=== PATIENT | female | born 1945 | race Caucasian/White ===

== ENCOUNTER 2019-11-16 13:15 | Outpatient (CLI) | payer MEDICARE, SELFPAY ==
[2019-11-16 13:52] LABS: Basophils % 0.9 %; Eosinophils # 0.1 10^3/uL (0.0-0.8); Eosinophils % 1.3 %; Hematocrit 38.3 % (37.0-47.0); Hemoglobin 12.8 g/dL (11.5-15.3); Lymphocytes # 1.3 10^3/uL (0.8-4.8); Lymphocytes % 29.1 %; Mean Corpuscular HGB Conc 33.4 g/dL (30.0-36.0); Mean Corpuscular Hemoglobin 32.1 pg (28.0-34.0); Monocytes # 0.4 10^3/uL (0.2-0.9); Monocytes % 8.4 %; Neutrophils # 2.7 10^3/uL (1.8-7.7); Neutrophils % 60.1 %; Nucleated Red Blood Cells % 0 %; Platelet Count 284 10^3/cmm (130-400); Red Blood Count 3.99 10^6/uL (4.1-5.3); Red Cell Distribution Width 13.1 % (12.1-15.1); White Blood Count 4.5 10^3/uL (4.0-10.0)
[2019-11-16 14:04] LABS: Alanine Aminotransferase 14 U/L (0-33); Albumin Level 4.1 g/dL (3.5-5.2); Alkaline Phosphatase 92 IU/L (35-105); Anion Gap 13.4 (5-19); Aspartate Amino Transferase 22 U/L (0-32); Blood Urea Nitrogen 10 mg/dL (8-23); Calcium 9.6 mg/dL (8.5-10.5); Carbon Dioxide 26 mmol/L (22-29); Chloride 103 mmol/L (98-107); Globulin 2.4 g/dL (1.3-4.6); Glucose 113 mg/dL (65-115); Lactate Dehydrogenase 176 U/L (135-214); Osmolality Calculated 285 mOsm/kg (285-295); Potassium 3.4 mmol/L (3.5-5.1); Sodium 139 mmol/L (136-145); Total Bilirubin 0.5 mg/dL (0.15-1.2); Total Protein 6.5 g/dL (6.6-8.7)
--- NOTE | 2019-11-17 07:00 | ONC FU_ITS ---
Dr. Araujo Patient Follow-Up Note Patient: Omayra Pena Unit #: [id number]: 1945 Dicatated By: Dez Araujo M.D.Date of Visit:Nov 16, 2019 Onc Med Follow-up/Prog Note Chief Complaint: Grade 3A follicular lymphoma. History of Present Illness: This is a 74 year-old woman with grade 3A follicular lymphoma, stage IIIA at initial diagnosis in June 2014. She has been in very good general health. She had an unremarkable yearly exam in March 2014. However, by May 2014 she had become aware of enlarged lymph nodes in the neck and axillary area. She was seen by Dr. Rios and she underwent preliminary evaluation with CT scans of the chest/abdomen/pelvis. Those studies did confirm the presence of extensive bilateral axillary, retropectoral, supraclavicular, and mediastinal adenopathy. There was even more prominent intra-abdominal and retroperitoneal adenopathy, bulky iliac adenopathy bilaterally, and inguinal adenopathy bilaterally. The appearance was felt to be most consistent with lymphoma. She underwent left axillary lymph node biopsy on 07/16/14. Pathology was consistent with malignant B-cell lymphoma, specifically a follicular lymphoma, grade 3A. Flow cytometry showed a monoclonal B-cell population which was predominantly negative for light chains and positive for CD19 and CD20, with partial expression of CD10. The results were felt to be suspicious for B cell neoplasm with a germinal center phenotype. There was no obvious involvement in the bone marrow by routine histology or by flow cytometry. A FISH study, though, did show a t(14:18) (q32:q21) fusion. The BCL-6 rearrangement was not detected, and the MYC rearrangement was not detected. She underwent treatment with R-CHOP chemotherapy. A restaging PET/CT prior to cycle 3 did show at least a significant partial response to the chemotherapy. There were residual calcified left-sided posterior mediastinal lymph nodes which were felt to be reactive in nature or indicative of partial response to therapy. There was no other adenopathy appreciated on that study. As of 11/18/14 she completed her 6th cycle of treatment. She had myelosuppression with each cycle and she also had significant fatigue, but overall she tolerated treatment well. Repeat PET/CT on 12/11/14 was consistent with complete response to chemotherapy. In May 2015 she started maintenance Rituxan with standard courses of 4 weekly treatments every 6 months for 2 years. She began her third 4-week cycle of maintenance Rituxan on 05/14/2016. She had no acute toxicities during the course of treatment. However, she had subsequently developed significant sun sensitivity, and that problem has persisted. I had seen her for follow-up visit on 11/13/2016, and at that point I opted to stop her treatment. Her other medical illnesses have been limited to hypertension and hyperlipidemia. She has additional history of having previously undergone radioactive iodine ablation for hyperthyroidism. During the followup of her lymphoma she had developed a skin eruption in the malar area. She subsequently was seen by a supervisor type photography, and she was diagnosed with systemic lupus. It was adequately managed with topical therapy. She has history of smoking 1 pack of cigarettes daily for 30 years. She is seen for a scheduled visit. She has been feeling good generally. She has good energy and activity tolerance. Appetite also has been good. Her weight is down about 5 pounds. She does not have fever or night sweats. She has sun sensitivity, and she recently had an outbreak of her skin eruption on her face. She has no shortness of breath, cough, or chest pain. She has no GI complaints other than some constipation, which she manages adequately with milk of magnesia. She reports having occasional bladder spasms. She has no other complaints. She has no significant joint or bone pain. She still has a little numbness on the bottoms of her feet from the chemotherapy. Medications: ALPRAZolam 1 Tablet (of 0.5 mg) Oral b.i.d. PRN, AmLODIPine Besylate 1 (5 mg) Tablet Oral daily, Aspirin 1 Tablet (of 81 mg) Tablet, enteric coated Oral daily, Benadryl Allergy Capsule Oral at bedtime PRN, Calcium 1 Tablet (of 600 mg) Oral daily, [facility] Fish Oil 1 Capsule (of 360 mg) Oral daily, Levothroid 1 Tablet (of 75 mcg) Oral daily, Lisinopril 1 (40 mg) Tablet Oral daily, Lovastatin 1 (10 mg) Tablet Oral daily, Multivitamin Adults 50+ Tablet Oral daily Allergies: asparagus, Bactrim DS, codeine, and levaquin. Review of Systems: Constitutional - She generally feels good. Her energy is good. She has normal activity. Her appetite is good. Her weight is down five pounds from last visit. No fever, chills, night sweats, or hot flashes. ECOG score is 0, ENMT - No sinus congestion/drainage. No mouth sores. No sore throat or difficulty swallowing, Hematologic/Lymphatic - No abnormal bruising or bleeding, Respiratory - No shortness of breath. No cough. No pleuritic pain or hemoptysis, Cardiovascular - No angina pain. No palpitations, Gastrointestinal - No nausea or vomiting. No heartburn or acid reflux. No diarrhea. She has occasional constipation, that is adequately managed with Milk of Magnesium. No blood in the stool or black stools, Genitourinary (F) - No dysuria or hematuria. No urinary frequency. No urgency or incontinence, Musculoskeletal - No joint or bone pain, Integumentary - No skin complications, Neurologic - No headache. She gets occasional dizziness with positional changes. No numbness or tingling. No other focal neurologic symptoms, Psychiatric - Her anxiety is adequately managed with alprazolam. No depression. She also sleeps well with the alprazolam. Vital Signs: Performed on Nov 16, 2019 14:58 Height - 65.00 in Weight - 135.0 lbs (LOW) BSA - 1.67 sq.m BMI - 22.47 Temperature - 97.5 F (LOW) Pulse - 64 /min Respiration - 20 /min BP - 137/66 mm(hg) O2 Sat - 98 % Pain - 0 Physical Examination: Constitutional - She looks good generally, Eyes - Sclerae nonicteric. Conjunctivae clear, ENMT - No lesions noted in the oral cavity, Hematologic/Lymphatic - No cervical, clavicular, or axillary adenopathy, Respiratory - Lungs are clear with good air movement bilaterally, Cardiovascular - Heart rhythm is regular. There is no gallop or rub noted, Abdomen - Soft. Liver and spleen are not enlarged. There is no abdominal mass or ascites noted and there is no inguinal adenopathy, Extremities - No edema. Pedal pulses are palpable bilaterally, Integumentary - There is a mild erythematous skin eruption in the facial area, Neurologic - No focal neurologic deficits noted. Lab/Imaging: Test performed on Nov 16, 2019 13:33 LDH (Total) 176 U/L Sodium 139 mmol/L Potassium 3.4 mmol/L Chloride 103 mmol/L CO2 26 mmol/L Anion Gap 13.4 BUN 10 mg/dL Creatinine 0.5 mg/dL Cr Clearance (Est) 97.4700 mL/min Glucose 113 mg/dL Calcium 9.6 mg/dL Protein, Total 6.5 g/dL Albumin 4.1 g/dL Globulin 2.4 g/dL Bilirubin, Total 0.5 mg/dL ALT (SGPT) 14 U/L AST (SGOT) 22 U/L Alkaline Phosphatase 92 IU/L WBC 4.5 10 3/uL RBC 3.99 10 6/uL HGB 12.8 g/dL HCT 38.3 % MCV 96.0 fL MCH 32.1 pg MCHC 33.4 g/dL RDW 13.1 % Platelet Count 284 10 3/cmm MPV 10.0 fL Neutrophils 2.7 10 3/uL Lymphocytes 1.3 10 3/uL Monocytes 0.4 10 3/uL Eosinophils 0.1 10 3/uL Basophils 0.0 10 3/uL Neutrophil % 60.1 % Lymphocyte % 29.1 % Monocyte % 8.4 % Eosinophil % 1.3 % Basophils % 0.9 % Impression: 1. Patient with grade 3A follicular lymphoma, initially diagnosed in June 2014. She had stage IIIA disease with extensive generalized lymphadenopathy. 2. She underwent treatment with R-CHOP chemotherapy. As of 11/18/14 she completed her sixth cycle of treatment. She appeared to have a complete response by followup PET/CT. She had gradual improvement in her performance status following the chemotherapy. 3. In May 2015 she began maintenance Rituxan at 6-month intervals. She began her 3rd maintenance cycle on 05/04/2016. She tolerated that 4 week course of treatment without acute toxicity. She subsequently developed a significant skin eruption, and I opted to stop her treatment. She has since then followed on observation/expectant management. Her other medical illnesses include: 4. Hypertension. 5. Hyperlipidemia. 6. She has a history of radioactive iodine ablation for hyperthyroidism. 7. During follow-up of the lymphoma she had developed sun sensitivity, and she was diagnosed with systemic lupus. She has had no other lupus manifestations. She has remained on observation/expectant management following completion of the chemotherapy and the maintenance rituximab. 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 Overall, though, she has been doing well clinically with no evidence of recurrence of the lymphoma. Plan: She remainss on observation/expectant management or the lymphoma. I will just plan to see her again in one year. Signed By: Dez Araujo M.D. <<Signature on File>>
== END 2019-11-16 13:16 | disposition home or self-care (01) ==
LOC: ONCMED 13:16
PROVIDERS: Family Provider Family Medicine; PCP Family Medicine; Visit Provider Internal Medicine Medical Oncology
DX: Z08 Encounter for follow-up examination after completed treatment for malignant neoplasm (principal); Z85.72 Personal history of non-Hodgkin lymphomas; I10 Essential (primary) hypertension; E78.5 Hyperlipidemia, unspecified; M32.9 Systemic lupus erythematosus, unspecified; G62.0 Drug-induced polyneuropathy; T45.1X5S Adverse effect of antineoplastic and immunosuppressive drugs, sequela; Z92.21 Personal history of antineoplastic chemotherapy; Z79.899 Other long term (current) drug therapy
CPT/HCPCS: 36415; 80053; 83615; 85025; G0463

== ENCOUNTER 2020-10-31 08:10 | Outpatient (CLI) | payer MEDICARE, SELFPAY ==
[2020-10-31 09:24] LABS: Basophils # 0.1 10^3/uL (0.0-0.1); Basophils % 1.6 %; Eosinophils # 0.2 10^3/uL (0.0-0.8); Eosinophils % 3.4 %; Hematocrit 41.2 % (37.0-47.0); Hemoglobin 13.3 g/dL (11.5-15.3); Lymphocytes % 19.5 %; Mean Corpuscular HGB Conc 32.3 g/dL (30.0-36.0); Mean Corpuscular Hemoglobin 31.9 pg (28.0-34.0); Mean Corpuscular Volume 98.8 fL (81-99); Mean Platelet Volume 10.1 fL (7.4-10.4); Monocytes # 0.5 10^3/uL (0.2-0.9); Monocytes % 10.7 %; Neutrophils # 3.28 10^3/uL (1.8-7.7); Neutrophils % 64.6 %; Nucleated Red Blood Cells % 0 %; Platelet Count 272 10^3/cmm (130-400); Red Blood Count 4.17 10^6/uL (4.1-5.3); Red Cell Distribution Width 13.1 % (12.1-15.1); White Blood Count 5.1 10^3/uL (4.0-10.0)
[2020-10-31 09:44] LABS: Alanine Aminotransferase 17 U/L (0-33); Albumin Level 4.2 g/dL (3.5-5.2); Alkaline Phosphatase 103 IU/L (35-105); Anion Gap 10.1 (5-19); Aspartate Amino Transferase 31 U/L (0-32); Blood Urea Nitrogen 19 mg/dL (8-23); Calcium 9.1 mg/dL (8.5-10.5); Carbon Dioxide 30 mmol/L (22-29); Chloride 105 mmol/L (98-107); Glucose 90 mg/dL (65-115); Lactate Dehydrogenase 263 U/L (135-214); Osmolality Calculated 294 mOsm/kg (285-295); Potassium 4.1 mmol/L (3.5-5.1); Sodium 141 mmol/L (136-145); Total Bilirubin 0.5 mg/dL (0.15-1.2); Total Protein 7.2 g/dL (6.6-8.7)
[2020-10-31 10:27] LABS: Thyroid Stimulating Hormone 3.07 uIU/mL (0.27-4.20)
--- NOTE | 2020-10-31 19:01 | ONC FU_ITS ---
Dr. Araujo Patient Follow-Up Note Patient: Omayra Pena Unit #: [id number]: 1945 Dicatated By: Dez Araujo M.D.Date of Visit:October 31, 2020 Onc Med Follow-up/Prog Note Chief Complaint: Grade 3A follicular lymphoma. History of Present Illness: This is a 75 year-old woman with grade 3A follicular lymphoma, stage IIIA at initial diagnosis in June 2014. She had an unremarkable yearly exam in March 2014. However, by May 2014 she had become aware of enlarged lymph nodes in the neck and axillary area. She was seen by Dr. Rios and she underwent preliminary evaluation with CT scans of the chest/abdomen/pelvis. Those studies did confirm the presence of extensive bilateral axillary, retropectoral, supraclavicular, and mediastinal adenopathy. There was even more prominent intra-abdominal and retroperitoneal adenopathy, bulky iliac adenopathy bilaterally, and inguinal adenopathy bilaterally. The appearance was felt to be most consistent with lymphoma. She underwent left axillary lymph node biopsy on 07/16/2014. Pathology was consistent with malignant B-cell lymphoma, specifically a follicular lymphoma, grade 3A. Flow cytometry showed a monoclonal B-cell population which was predominantly negative for light chains and positive for CD19 and CD20, with partial expression of CD10. The results were felt to be suspicious for B cell neoplasm with a germinal center phenotype. There was no obvious involvement in the bone marrow by routine histology or by flow cytometry. A FISH study, though, did show a t(14:18) (q32:q21) fusion. The BCL-6 rearrangement was not detected, and the MYC rearrangement was not detected. She underwent treatment with R-CHOP chemotherapy. A restaging PET/CT prior to cycle 3 did show at least a significant partial response to the chemotherapy. There were residual calcified left-sided posterior mediastinal lymph nodes which were felt to be reactive in nature or indicative of partial response to therapy. There was no other adenopathy appreciated on that study. As of 11/18/2014 she completed her 6th cycle of treatment. She had myelosuppression with each cycle and she also had significant fatigue, but overall she tolerated treatment well. Repeat PET/CT on 12/11/14 was consistent with complete response to chemotherapy. In May 2015 she started maintenance Rituxan with standard courses of 4 weekly treatments every 6 months for 2 years. She began her third 4-week cycle of maintenance Rituxan on 05/14/2016. She had no acute toxicities during the course of treatment. However, she had subsequently developed significant sun sensitivity, and that problem has persisted. I had seen her for follow-up visit on 11/13/2016, and at that point I opted to stop her treatment. Her other medical illnesses have been limited to hypertension and hyperlipidemia. She has additional history of having previously undergone radioactive iodine ablation for hyperthyroidism. During the followup of her lymphoma she had developed a skin eruption in the malar area. She subsequently was seen by a transcribing machine operator, and she was diagnosed with systemic lupus. It was adequately managed with topical therapy. She has history of smoking 1 pack of cigarettes daily for 30 years, but she has cut down now. She is seen for a scheduled visit. She has been feeling fine, though she does have some fatigue. She attributed to the lupus. She still has normal activity. ECOG score is 0. Her appetite has been good. She has no fever or night sweats. She has had no recurrence of skin eruption. She does not complain of shortness of breath or cough. She is still smoking. She had gotten down to 1/2 pack/day, but recently she has increased a little. She does not complain of chest pain. She has no GI/ complaints other than a little bit of acid reflux occasionally, managed with Tums. She has had some pain in her knees subsequent to a recent fall. She has no other joint or bone pain. She does not complain of headache or dizziness. She has just a little bit of residual numbness/tingling in her feet. Medications: ALPRAZolam 1 Tablet (of 0.5 mg) Oral b.i.d. PRN, AmLODIPine Besylate 1 (5 mg) Tablet Oral daily, Aspirin 1 Tablet (of 81 mg) Tablet, enteric coated Oral daily, Benadryl Allergy Capsule Oral at bedtime PRN, Levothroid 1 Tablet (of 75 mcg) Oral daily, Lisinopril 1 (40 mg) Tablet Oral daily, Lovastatin 1 (10 mg) Tablet Oral daily, Multivitamin Adults 50+ Tablet Oral daily Allergies: asparagus, Bactrim DS, codeine, and levaquin. Vital Signs: Her weight is 134 pounds. Blood pressure 177/84, pulse 62, respirations 16, temp 97.7 degrees, and oxygen saturation 98%. Physical Examination: Constitutional - She looks good generally, Eyes - Sclerae nonicteric. Conjunctivae clear, ENMT - No lesions noted in the oral cavity, Hematologic/Lymphatic - No cervical, clavicular, or axillary adenopathy, Respiratory - Lungs are clear with good air movement bilaterally, Cardiovascular - Heart rhythm is regular. There is no murmur, gallop, or rub noted, Abdomen - Soft. Liver and spleen are not enlarged. There is no abdominal mass or ascites noted and there is no inguinal adenopathy, Extremities - No edema. Pedal pulses are palpable bilaterally, Neurologic - No focal neurologic deficits noted. Lab/Imaging: Test performed on October 31, 2020 08:35 LDH (Total) 263 U/L Sodium 141 mmol/L Potassium 4.1 mmol/L Chloride 105 mmol/L CO2 30 mmol/L Anion Gap 10.1 BUN 19 mg/dL Creatinine 0.7 mg/dL Cr Clearance (Est) 68.5300 mL/min Glucose 90 mg/dL Osmolality - Calculated 294 mOsm/kg Calcium 9.1 mg/dL Protein, Total 7.2 g/dL Albumin 4.2 g/dL Globulin 3.0 g/dL Bilirubin, Total 0.5 mg/dL ALT (SGPT) 17 U/L AST (SGOT) 31 U/L Alkaline Phosphatase 103 IU/L WBC 5.1 10 3/uL RBC 4.17 10 6/uL HGB 13.3 g/dL HCT 41.2 % MCV 98.8 fL MCH 31.9 pg MCHC 32.3 g/dL RDW 13.1 % Platelet Count 272 10 3/cmm MPV 10.1 fL Neutrophils 3.28 10 3/uL Lymphocytes 1.0 10 3/uL Monocytes 0.5 10 3/uL Eosinophils 0.2 10 3/uL Basophils 0.1 10 3/uL Neutrophil % 64.6 % Lymphocyte % 19.5 % Monocyte % 10.7 % Eosinophil % 3.4 % Basophils % 1.6 % NRBC % 0 % Problem List: 1. Grade 3A follicular lymphoma, stage III at initial diagnosis in June 2014. 2. Hypertension. 3. Hyperlipidemia. 4. She has a history of radioactive iodine ablation for hyperthyroidism. 5. During follow-up of the lymphoma she had developed sun sensitivity, and she was diagnosed with systemic lupus. She has had no other lupus manifestations. Problems Addressed with this Encounter and Plan: 1. Patient with grade 3A follicular lymphoma, initially diagnosed in June 2014. She had stage IIIA disease with extensive generalized lymphadenopathy. She underwent treatment with 6 cycles of R-CHOP chemotherapy, completed in November 2014. She appeared to have a complete response by followup PET/CT. She had gradual improvement in her performance status following the chemotherapy. In May 2015 she began maintenance Rituxan at 6-month intervals. She began her 3rd maintenance cycle on 05/04/2016. She tolerated that 4 week course of treatment without acute toxicity. She subsequently developed a significant skin eruption, and I opted to stop her treatment. She was then followed expectantly. During follow-up she has been doing very well clinically. She did have some mild residual neuropathy from the chemotherapy, mainly in her feet, and that has gradually lessened. Thus far there has been no evidence of recurrence of the lymphoma. She should continue yearly follow-up. She is going to be relocating to [place], [place], and I will arrange for her to continue her surveillance with her oncologist in that area. 2. She has a greater than [id number] smoking history. She is recommended to have a lung cancer screening CT. She is agreeable, so I will have that scheduled. Signed By: Dez Araujo M.D. <<Signature on File>>
== END 2020-10-31 08:11 | disposition home or self-care (01) ==
LOC: ONCMED 08:17
PROVIDERS: PCP Nurse Practitioner; Visit Provider Internal Medicine Medical Oncology
DX: Z08 Encounter for follow-up examination after completed treatment for malignant neoplasm (principal); Z85.72 Personal history of non-Hodgkin lymphomas; I10 Essential (primary) hypertension; E78.5 Hyperlipidemia, unspecified; E05.00 Thyrotoxicosis with diffuse goiter without thyrotoxic crisis or storm; M32.9 Systemic lupus erythematosus, unspecified; Z79.899 Other long term (current) drug therapy
CPT/HCPCS: 36415; 80053; 83615; 84443; 85025; 99214